=== PATIENT | male | born 1975 | race African-American/Black ===

== ENCOUNTER 2016-11-18 01:02 | Emergency (ER) | payer BC ==
--- NOTE | ~2016-11-18 | CR94 ---
[facility]. [facility] A Service of [facility] & [facility] RADIOLOGY TEXT RESULTS PATIENT: CARLITOS FATIMA LOCATION: SED : 73 UNIT #: [id number] AGE: [address]: ROSA NOLEN SEX: M ORDER DR: [id number] [place] [id number] E MR#: [id number] Acc #: [id number] NAME: CARLITOS FATIMA : 1975 SEX: M STUDY DATE/TIME: 11/18/2016 0:51 UNIT: SED ROOM: STUDY DESCRIPTION: CR Elbow Min 3 Views Rt Attending Physician: Rosa Nolen Ordering Physician: Junito Mcrae M.D. MEDICAL IMAGING REPORT This report is preliminary unless electronic signature is present. EXAM Right elbow series 11/18/2016 HISTORY 41-year-old male in the ED with right elbow pain after injury. Fell down steps tonight, landing on elbow. TECHNIQUE 3 view right elbow series. FINDINGS There is an acute, nondisplaced transverse fracture across the neck of the radius. Large elbow joint effusion. No additional osseous abnormality is demonstrated. IMPRESSION Nondisplaced radial neck fracture. Elbow joint effusion. Dictated by... Edwar Moore M.D. THIS IS AN ELECTRONICALLY VERIFIED REPORT Edwar Moore M.D. at 11/18/2016 9:53 PM MITCH/meenakshi TD: 11/18/2016 07:09 JOB #: [id number] MEDICAL IMAGING REPORT Page 1 of 1
[~2016-11-18 01:02] MED LIST: NO MEDICATIONS
== END 2016-11-18 01:45 | disposition home or self-care (01) ==
LOC: SED 01:02
DX: S52.134A Nondisplaced fracture of neck of right radius, initial encounter for closed fracture (principal); W10.9XXA Fall (on) (from) unspecified stairs and steps, initial encounter; Y92.009 Unspecified place in unspecified non-institutional (private) residence as the place of occurrence of the external cause
CPT/HCPCS: 29105; 73080; 99283